=== PATIENT | female | born 2000 | race African-American/Black ===

== ENCOUNTER 2020-05-22 21:12 | Emergency (ER) | payer BC ==
[~2020-05-22] VITALS: Ht 167.6 cm; Wt 61.4 kg
[2020-05-22 21:19] VITALS: TEMP 98.3
[2020-05-22 22:23] VITALS: BP 128/65; PULSE 104
[2020-11-07] MEDS ORDERED: CEPHALEXIN500 M1 PO (16:42)
== END 2020-05-22 22:24 | disposition home or self-care (01) ==
LOC: COL.ER 21:12
DX: J06.9 Acute upper respiratory infection, unspecified (principal); Z20.822 Contact with and (suspected) exposure to COVID-19

== ENCOUNTER 2020-11-06 03:33 | Emergency (ER) | payer BC ==
[~2020-11-06] VITALS: Ht 167.6 cm; Wt 65.0 kg
[2020-11-06 03:40] VITALS: TEMP 99.3
[2020-11-06 03:55] LABS: BASO # 0.1 (0.0-0.2); BASO % 1.1 % (0.0-2.0); EOS # 0.2 (0.0-0.7); EOS % 2.6 % (0-4.0); GRAN # 4.4 (1.4-6.5); GRAN % 52.1 % (42.2-75.2); LYMPH # 2.4 (1.2-3.4); LYMPH % 28.7 % (20.0-51.0); MEAN CELL VOLUME 52 fl (80.0-95.0); MEAN CORPUSCULAR HGB CONC 28 g/dl (33.0-37.0); MONO # 1.3 (0.1-0.6); MONO % 15.3 % (1.7-9.3); PLATELET COUNT 403 K/mm3 (130-400); RED BLOOD COUNT 5.39 M/mm3 (4.10-5.30); REDCELL DISTRIBUTION WIDTH-CV 22.8 % (11.5-14.5)
[2020-11-06 03:56] LABS: HEMATOCRIT 28.1 % (35.0-45.0); HEMOGLOBIN 7.9 g/dl (12.0-15.0); MEAN CORPUSCULAR HEMOGLOBIN 15 pg (26.0-32.0)
[2020-11-06 04:26] LABS: COLLECTION METHOD CLEAN CATCH
[2020-11-06 04:54] LABS: MUCOUS Present /lpf; PH 5 (5-8); SQUAMOUS EPITHELIAL 0-2 /hpf; URINE APPEARANCE Cloudy; URINE BACTERIA None Seen /hpf; URINE BILIRUBIN Negative (NEGATIVE); URINE BLOOD 3+ (NEGATIVE); URINE COLOR Yellow; URINE GLUCOSE Negative (NEGATIVE); URINE KETONE Negative (NEGATIVE); URINE LEUKOCYTE ESTERASE 3+ (NEGATIVE); URINE NITRATE Positive (NEGATIVE); URINE PROTEIN(semi-quant) 3+ (NEGATIVE); URINE RBC >50 /hpf; URINE UROBILINOGEN Negative (NEGATIVE)
[2020-11-06] MEDS ORDERED: MACROBID 1100 MG/CAP PO (05:01)
[2020-11-06 05:15] VITALS: BP 114/78; PULSE 66
[2020-11-07] MEDS ORDERED: CEPHALEXIN500 M1 PO (16:42)
== END 2020-11-06 05:15 | disposition home or self-care (01) ==
LOC: COL.ER 03:33
PROVIDERS: Emergency Medicine
DX: N39.0 Urinary tract infection, site not specified (principal); D64.9 Anemia, unspecified; Z32.02 Encounter for pregnancy test, result negative
CPT/HCPCS: J7030